=== PATIENT | female | born 1960 ===

== ENCOUNTER 2017-05-09 05:44 | Emergency (ER) | payer MEDICAID ==
[2017-05-09 05:44] VITALS: BMI 20.7
[2017-05-09 05:56] VITALS: TEMP 98.2; O2SAT 98
--- NOTE | 2017-05-09 06:40 | ED PDOC ---
HPI: Back Chief Complaint (Provider): Left flank pain History Per: Patient History/Exam Limitations: no limitations Onset/Duration Of Symptoms: Days (6) Current Symptoms Are (Timing): Still Present Quality Of Discomfort: "Pain" Additional Complaint(s): The patient is a 56yo female, pmhx of osteoporosis, diabetes, presents to the ED for evaluation of left flank pain, radiating down her leg, present for the past 6 days. Patient reports 6 days ago, she was attempting to sit down on a chair when she had a mechanical fall and landed on her left flank; she reports the pain has been progressively worsening. Pt states she has taken Tylenol and Advil at home with no relief. She reports her pain is worse with bending over, coughing or sneezing. She denies any dysuria or hematuria. Pt offers no additional medical complaints. PCP: Dr. Elijah Betts <Rosana Barker - Last Filed: 05/09/17 06:55> <Madi Vance Jr. - Last Filed: 05/09/17 10:49> Time Seen by Provider: 05/09/17 06:04 Chief Complaint (Nursing): Back Pain Past Medical History Reviewed: Historical Data, Nursing Documentation, Vital Signs Vital Signs: Last Vital Signs Temp 98.2 F 05/09/17 05:51 Pulse 76 05/09/17 05:51 Resp 18 05/09/17 05:51 BP 150/99 H 05/09/17 05:51 Pulse Ox 98 05/09/17 05:51 - Medical History PMH: Anemia, Anxiety, Asthma, Back Problems, Depression, Diabetes, Fractures ( THUMBS, WRIST), Hypercholesterolemia, Kidney Stones, Osteoporosis, Chronic Kidney Disease - Surgical History Surgical History: Endoscopy Other surgeries: breast reduction - Family History Family History: States: Unknown Family Hx - Social History Current smoker - smoking cessation education provided: No Alcohol: None Drugs: Denies <Rosana Barker - Last Filed: 05/09/17 06:55> Vital Signs: Last Vital Signs Temp 98.2 F 05/09/17 05:51 Pulse 66 05/09/17 09:10 Resp 16 05/09/17 09:10 BP 141/77 05/09/17 09:10 Pulse Ox 98 05/09/17 06:56 <Madi Vance Jr. - Last Filed: 05/09/17 10:49> - Home Medications Home Medications: Ambulatory Orders Medication Instructions Recorded Alendronate [Fosamax] 1 tab PO DAILY 05/09/17 Lovastatin [Lovastatin] 1 tab PO DAILY 05/09/17 Naproxen [Anaprox DS] 1 tab PO BID PRN #20 tab 05/09/17 metFORMIN [glucOPHAGE] 1 tab PO DAILY 05/09/17 traZODone [Desyrel] 1 tab PO HS 05/09/17 - Allergies Allergies/Adverse Reactions: Allergies Allergy/AdvReac Type Severity Reaction Status Date / Time codeine Allergy RASH Verified 10/02/16 09:56 meperidine HCl [From Demerol] Allergy RASH Verified 10/02/16 09:56 Penicillins Allergy RASH Verified 10/02/16 09:56 Review of Systems ROS Statement: Except As Marked, All Systems Reviewed And Found Negative Gastrointestinal: Positive for: Other (left flank pain) Genitourinary Female: Negative for: Dysuria, Hematuria Musculoskeletal: Positive for: Leg Pain (left leg radiating from left flank) <Rosana Barker - Last Filed: 05/09/17 06:55> Physical Exam - Reviewed Nursing Documentation Reviewed: Yes Vital Signs Reviewed: Yes - Physical Exam Appears: Positive for: Non-toxic, No Acute Distress Head Exam: Positive for: ATRAUMATIC, NORMAL INSPECTION, NORMOCEPHALIC Skin: Positive for: Normal Color Eye Exam: Positive for: Normal appearance Neck: Positive for: Normal, Supple Cardiovascular/Chest: Positive for: Regular Rate, Rhythm Respiratory: Positive for: Normal Breath Sounds. Negative for: Accessory Muscle Use, Respiratory Distress Neurologic/Psych: Positive for: Alert, Oriented. Negative for: Motor/Sensory Deficits <Rosana Barker - Last Filed: 05/09/17 06:55> - ECG O2 Sat by Pulse Oximetry: 98 (RA) Pulse Ox Interpretation: Normal <Rosana Barker - Last Filed: 05/09/17 06:55> - Laboratory Results Result Diagrams: 05/09/17 06:58 05/09/17 06:58 <Madi Vance Jr. - Last Filed: 05/09/17 10:49> Medical Decision Making Medical Decision Making: Time: 614 Impression: Left flank pain Differential: Musculoskeletal pain, retropetioneal organ injury, les sliekly lumbar spine fracture, lumbar radiculopathy, renal colic Plan: -- CT AP -- BMP -- CBC -- ED Urine dipstick -- Toradol 15 mg IM --Reassess Time: 0700 Pt to be signed out to Dr. Vance pending CT AP, labs, re-eval and final disposition. Scribe Attestation: Documented by Carola Razo acting as a scribe for Rosana Barker MD Provider Scribe Attestation: All medical record entries made by the Scribe were at my direction and personally dictated by me. I have reviewed the chart and agree that the record accurately reflects my personal performance of the history, physical exam, medical decision making, and the department course for this patient. I have also personally directed, reviewed, and agree with the discharge instructions and disposition. <Rosana Barker - Last Filed: 05/09/17 06:55> Medical Decision Makin:46 AM - Pt feels better. Will d/c home. <Madi Vance Jr. - Last Filed: 05/09/17 10:49> Disposition - Patient ED Disposition Is Patient to be Admitted: Transfer of Care - Disposition Disposition: Transfer of Care Disposition Time: 07:00 Patient Signed Over To: Madi Vance Jr. Handoff Comments: Pneding labs, imaging, reeval, dispo <Rosana Barker - Last Filed: 05/09/17 06:55> - Patient ED Disposition Is Patient to be Admitted: No - Disposition Disposition: Routine/Home <Madi Vance Jr. - Last Filed: 05/09/17 10:49> - Clinical Impression Clinical Impression: Contusion, flank - Disposition Referrals: Rey Carlos MD [Primary Care Provider] - Condition: STABLE Additional Instructions: Ms. Polo, thank you for letting us take care of you today. Return to the ER if your symptoms worsen, or if any problems. Take the medication listed below as prescribed. Follow up with your doctor next week for a re-evaluation. Prescriptions: Naproxen [Anaprox DS] 1 tab PO BID PRN #20 tab PRN Reason: Pain, Moderate (4-7) Instructions: Contusion in Adults (ED) Forms: [facility] (Bruneian) Print Language: INDONESIAN
[2017-05-09 07:04] LABS: BASO % 0.5 % (0.0-2.0); EOS # 0.1 K/uL (0.0-0.7); EOS % 1.1 % (0.0-4.0); HEMATOCRIT 42.4 % (34.0-47.0); LYMPH # 0.9 K/uL (1.0-4.3); LYMPH % 14.3 % (20.0-40.0); MEAN CELL VOLUME 89.6 fl (81.0-99.0); MEAN CORPUSCULAR HEMOGLOBIN 29.7 pg (27.0-31.0); MEAN CORPUSCULAR HGB CONC 33.2 g/dL (33.0-37.0); MEAN PLATELET VOLUME 7.8 fl (7.2-11.7); MONO # 0.4 K/uL (0.0-0.8); MONO % 6.5 % (0.0-10.0); NEUT # 5.1 K/uL (1.8-7.0); NEUT % 77.6 % (50.0-75.0); NRBC % 0.1 % (0.0-0.0); RED CELL DISTRIBUTION WIDTH 13.6 % (11.5-14.5); WHITE BLOOD COUNT 6.6 K/uL (4.8-10.8)
[2017-05-09 07:18] LABS: BLOOD UREA NITROGEN 12 mg/dl (7-17); CALCIUM 9.8 mg/dL (8.4-10.2); CARBON DIOXIDE 26 mmol/L (22-30); CHLORIDE 106 mmol/L (98-107); GFR AFRICAN-AMERICAN > 60; GLUCOSE,RANDOM 106 mg/dL (65-105); POTASSIUM 4.6 MMOL/L (3.6-5.0); SODIUM 142 mmol/l (132-148)
[2017-05-09 09:11] VITALS: BP 141/77; PULSE 66; RESP 16
--- NOTE | 2017-05-09 09:43 | CT ---
PROCEDURE: CT Abdomen and Pelvis without intravenous contrast HISTORY: left flank pain COMPARISON: None. TECHNIQUE: Helical CT of the abdomen pelvis was performed without oral or intravenous contrast as per referring physician request. Contrast Dose: None Radiation dose: Total exam DLP = 346 mGy-cm. This CT exam was performed using one or more of the following dose reduction techniques: Automated exposure control, adjustment of the mA and/or kV according to patient size, and/or use of iterative reconstruction technique. FINDINGS: LOWER THORAX: Unremarkable. LIVER: Unremarkable. No gross lesion or ductal dilatation. GALLBLADDER AND BILE DUCTS: Unremarkable. PANCREAS: Unremarkable. No gross lesion or ductal dilatation. SPLEEN: Unremarkable. ADRENALS: Unremarkable. No mass. KIDNEYS AND URETERS: No radiodense urolithiasis. No hydronephrosis. No perinephric reaction. No solid mass. VASCULATURE: Unremarkable. No aortic aneurysm. BOWEL: Prior gastric bypass operative changes again noted at the left upper quadrant. No obstruction. No gross mural thickening. Presumed distal gastric bypass anastomotic suture line unchanged in appearance overall. However, lack of oral contrast limits evaluation of the large and small bowel. Prominent retained fecal material seen at the ascending and transverse large-bowel segments. APPENDIX: Not identified. No gross CT pattern suggest appendicitis at this time. PERITONEUM: Unremarkable. No free fluid. No free air. LYMPH NODES: Unremarkable. No enlarged lymph nodes. BLADDER: Unremarkable. REPRODUCTIVE: Unremarkable. BONES: No acute fracture. OTHER FINDINGS: None. IMPRESSION: Nonacute appearing and pelvis CT examination without contrast. Lack of oral contrast limits evaluation the bowel with anastomotic segment of bowel again seen at the left lower quadrant which anastomotic line stable in appearance in the interval. No obstructive uropathy, radiodense urolithiasis or perinephric reaction bilaterally. Urinary bladder appears unremarkable.
== END 2017-05-09 11:18 | disposition home or self-care (01) ==
LOC: H.ER 05:44
DX: S30.1XXA Contusion of abdominal wall, initial encounter (principal); W19.XXXA Unspecified fall, initial encounter; Y92.89 Other specified places as the place of occurrence of the external cause
CPT/HCPCS: 74176; 80048; 85025; 96374; 96375; 99285; J1885; J2270

== ENCOUNTER 2017-09-15 05:35 | Emergency (ER) | payer MEDICAID ==
[2017-09-15 05:35] VITALS: BMI 20.7
[2017-09-15 05:57] VITALS: BP 162/98; PULSE 81; RESP 16; TEMP 98; O2SAT 99
[2017-09-15] MEDS ORDERED: Oxycodone/Acetaminophen 5/325 mg Tab PO STA (06:08)
[2017-09-15] MEDS ORDERED: Lidocaine 1% Inj (20ml) IJ ONE (06:08)
[2017-09-15] MEDS ORDERED: Povidone Iodine Oint 10% Foilpak UD ONE (06:12)
[2017-09-15] MEDS ORDERED: Tmp-Smz 800 mg-160 mg DS Tab PO STA (06:21)
[2017-09-15] MEDS ORDERED: Tmp-Smz 800 mg-160 mg DS Tab ONE (06:29)
--- NOTE | 2017-09-15 06:38 | ED PDOC ---
Upper Extremity Pain/Injury Time Seen by Provider: 09/15/17 05:50 Chief Complaint (Nursing): Finger,Hand,&Wrist Chief Complaint (Provider): Right Thumb Pain History Per: Patient History/Exam Limitations: no limitations Onset/Duration Of Symptoms: Days (2days) Current Symptoms Are (Timing): Still Present Additional Complaint(s): 57 y/o female with a history of Diabetes and Osteoporosis, presents to the ED complaining of right thumb pain. She claims to have "picked her cuticle" . She denies fevers or chills. Past Medical History Reviewed: Historical Data, Nursing Documentation, Vital Signs Vital Signs: Last Vital Signs Temp 98.0 F 09/15/17 05:52 Pulse 81 09/15/17 05:52 Resp 16 09/15/17 05:52 BP 162/98 H 09/15/17 05:52 Pulse Ox 99 09/15/17 05:52 - Medical History PMH: Anemia, Anxiety, Asthma, Back Problems, Depression, Diabetes, Fractures ( THUMBS, WRIST), Hypercholesterolemia, Kidney Stones, Osteoporosis, Chronic Kidney Disease - Surgical History Surgical History: Endoscopy - Family History Family History: States: Unknown Family Hx - Social History Current smoker - smoking cessation education provided: Yes Alcohol: None Drugs: Denies - Home Medications Home Medications: Ambulatory Orders Medication Instructions Recorded Alendronate [Fosamax] 1 tab PO DAILY 05/09/17 Lovastatin [Lovastatin] 1 tab PO DAILY 05/09/17 Naproxen [Anaprox DS] 1 tab PO BID PRN #20 tab 05/09/17 metFORMIN [glucOPHAGE] 1 tab PO DAILY 05/09/17 traZODone [Desyrel] 1 tab PO HS 05/09/17 Sulfamethoxazole/Trimethoprim 1 tab PO BID #20 tab 09/15/17 [Bactrim DS 800 mg-160 mg] traMADol [Ultram] 50 mg PO Q6 PRN #8 tab 09/15/17 - Allergies Allergies/Adverse Reactions: Allergies Allergy/AdvReac Type Severity Reaction Status Date / Time codeine Allergy RASH Verified 10/02/16 09:56 meperidine HCl [From Demerol] Allergy RASH Verified 10/02/16 09:56 Penicillins Allergy RASH Verified 10/02/16 09:56 Review of Systems ROS Statement: Except As Marked, All Systems Reviewed And Found Negative Constitutional: Negative for: Fever, Chills Musculoskeletal: Positive for: Other (right thumb pain) Physical Exam - Reviewed Nursing Documentation Reviewed: Yes Vital Signs Reviewed: Yes - Physical Exam Appears: Positive for: Non-toxic, No Acute Distress Head Exam: Positive for: ATRAUMATIC Skin: Positive for: Normal Color, Warm Eye Exam: Positive for: Normal appearance Neck: Positive for: Normal Cardiovascular/Chest: Positive for: Regular Rate, Rhythm. Negative for: Murmur Respiratory: Positive for: Normal Breath Sounds. Negative for: Respiratory Distress Pulses-Radial (L): 2+ Pulses-Radial (R): 2+ Extremity: Positive for: Normal ROM, Capillary Refill (good cap refill; less than 2 seconds), Swelling (1st digit edema, erythematous, induration and fluctuation adjacent to the medial aspect at the base of the nail bed) Lymphatic: Negative for: Adenopathy Neurologic/Psych: Positive for: Alert, Oriented. Negative for: Motor/Sensory Deficits - ECG O2 Sat by Pulse Oximetry: 99 (RA) Pulse Ox Interpretation: Normal Medical Decision Making Medical Decision Making: Time: --06:08 Impression: --57 y/o female with paronychia Plan: --Lidocaine 3ml IJ --Oxcycodone 1 tab PO --Sulfamethoxazole 1 tab PO --Accucheck Reassess --: Patient was discharged home after I&D procedure. Scribe Attestation: Documented by Mark Way acting as a scribe for Francesco Varela MD. Procedures - Incision and Drainage Site: 1st digit adjacent to the medial aspect at the base of the nail bed Blade Size: 11 I & D Procedure: betadine prep, sterile dressing applied Progress: Provider used 3ccs of local lidocaine 1%, sterilized the area with beta dine and used an 11 blade to remove yellow purulent malodorous material. Dressing was applied, as well as Bacitracin. Disposition - Clinical Impression Clinical Impression: Paronychia - Patient ED Disposition Is Patient to be Admitted: No - Disposition Disposition: Routine/Home Disposition Time: Condition: IMPROVED Prescriptions: Sulfamethoxazole/Trimethoprim [Bactrim DS 800 mg-160 mg] 1 tab PO BID #20 tab traMADol [Ultram] 50 mg PO Q6 PRN #8 tab PRN Reason: finger pain Instructions: Paronychia (ED) Forms: [facility] (Scottish)
== END 2017-09-15 06:35 | disposition home or self-care (01) ==
LOC: H.ER 05:35
DX: L03.019 Cellulitis of unspecified finger (principal); Z79.84 Long term (current) use of oral hypoglycemic drugs

== ENCOUNTER 2018-05-11 01:28 | Emergency (ER) | payer MEDICAID ==
[2018-05-11 01:29] VITALS: BMI 20.7
[2018-05-11 02:00] VITALS: BP 126/75; PULSE 78; RESP 16; TEMP 98.5; O2SAT 98
== END 2018-05-11 02:30 | disposition left against medical advice (07) ==
LOC: H.ER 01:28
DX: Z02.89 Encounter for other administrative examinations (principal)